=== PATIENT | male | born 1985 | race Hispanic/Latino ===

== ENCOUNTER 2016-12-23 10:07 | Observation (INO) | payer MEDICARE, MEDICAID ==
[2016-12-23 10:07] VITALS: BMI 32.1
[2016-12-23] MEDS ORDERED: Sodium Chloride 0.9% 1,000 ML IV ONE (10:59)
[2016-12-23] MEDS ORDERED: Iohexol 240 (50 ml) PO STA (10:59)
--- NOTE | 2016-12-23 10:59 | C.PDOC ---
History Of Present Illness 31 y/o male presents to ED with complaints of recurrent abdominal wax and wane pain since this morning, mostly to LLQ but generalized. Patient reports prior episodes of similar symptoms and was seen on 05/2016 and 06/2016 for same symptoms. Patient states he followed up with Dr. 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 Patient also complaints of nausea and loose bowel movement but denies fever, chills, vomiting , back pain or any other complaints at this time. No PSHx, NPO since 12/22 RECUR ABD PAIN SINCE THIS MORNING. MOST PAIN LLQ BUT GENERALIZED. WAX WANE. SIM TO PRIOR EPISODES. SEEN 05/2016 AND 06/2016 FOR SAME. PS FU W DR NATHALIE Lopez/P COLONOSCOPY. DX ?GASTRITIS. ON PROTONIX DAILY. +NAUSEA, LOOSE BM. NO FEVER. DENIES PSH EXAM MILD DIST NONTOXIC ABD +LLQ TEND MILD SOFT NO R/G REMAINDER NEG NPO SINCE 12/22 Time Seen by Provider: 12/23/16 10:50 Chief Complaint (Nursing): Abdominal Pain History Per: Patient History/Exam Limitations: no limitations Onset/Duration Of Symptoms: Days Current Symptoms Are (Timing): Still Present Location Of Pain/Discomfort: LLQ Quality Of Discomfort: "Pain" Associated Symptoms: Nausea Past Medical History Reviewed: Historical Data, Nursing Documentation, Vital Signs Vital Signs: Last Vital Signs Temp 97.5 F L 12/23/16 13:32 Pulse 58 L 12/23/16 13:32 Resp 18 12/23/16 13:32 BP 100/64 12/23/16 13:32 Pulse Ox 99 12/23/16 13:32 - Medical History PMH: Anxiety, Bipolar Disorder, Depression, Diverticulitis (+DIVERTICULOSIS) Family History: States: No Known Family Hx - Social History Hx Tobacco Use: No Hx Alcohol Use: Yes Hx Substance Use: No - Immunization History Hx Tetanus Toxoid Vaccination: Yes Hx Influenza Vaccination: No Hx Pneumococcal Vaccination: No Review Of Systems Except As Marked, All Systems Reviewed And Found Negative. Constitutional: Negative for: Fever, Chills Gastrointestinal: Positive for: Nausea, Abdominal Pain. Negative for: Vomiting , Diarrhea Musculoskeletal: Negative for: Back Pain Skin: Negative for: Rash Physical Exam - Physical Exam Appears: Non-toxic, Other (Mild distress) Skin: Normal Color, Warm, No Rash Head: Atraumatic, Normacephalic Eye(s): bilateral: Normal Inspection Neck: Normal ROM, Supple Chest: Symmetrical Cardiovascular: Rhythm Regular, No Murmur Respiratory: Normal Breath Sounds, No Accessory Muscle Use, No Rales, No Rhonchi , No Wheezing Gastrointestinal/Abdominal: Soft, Tenderness (Mild LLQ ), No Guarding, No Rebound Extremity: Normal ROM, Capillary Refill (<2 seconds) ED Course And Treatment - Laboratory Results Result Diagrams: 12/23/16 11:31 12/23/16 11:31 ECG: Interpreted By Me, Viewed By Me ECG Rhythm: Sinus Bradycardia Rate From EC (bpm) O2 Sat by Pulse Oximetry: 98 (RA) Pulse Ox Interpretation: Normal Progress - Data Reviewed Data Reviewed: Lab, Diagnostic imaging, EKG, Old records ED OBSERVATION Discharge: Yes Date of observation admission: 12/23/16 Time of observation admission: 10:30 - Observation admission statement Patient is being placed in observation because:: AB DPAIN - Goals of Observation Goals of observation are:: SX IMPROVE, NEG ACUTE ABD - Progress Note Progress Note: 12/23/16 12:44 RN STATES PT W SINUS LELA ON MONITOR. PT FEELS BETTER, DENIES DIZZY. BP NO SIG CHANGE PRIOR. PENDING CT. 12/23/16 14:09 FEELS BETTER. ADVISED FU GI. LIGHT DIET. Disposition Counseled Patient/Family Regarding: Studies Performed, Diagnosis, Need For Followup, Rx Given - Disposition Disposition: HOME/ ROUTINE Disposition Time: 14:18 Condition: IMPROVED - Clinical Impression Clinical Impression: Abdominal colic - PA / CUSTOMER COMPLAINT SERVICE SUPERVISOR / Resident Statement MD/DO has examined the patient and agrees with the treatment plan. - Scribe Statement The provider has reviewed the documentation as recorded by the Sohan Snow All medical record entries made by the Sohan were at my direction and personally dictated by me. I have reviewed the chart and agree that the record accurately reflects my personal performance of the history, physical exam, medical decision making, and the department course for this patient. I have also personally directed, reviewed, and agree with the discharge instructions and disposition.
[2016-12-23] MEDS ORDERED: Iohexol 240 (50 ml) ONE (11:05)
[2016-12-23] MEDS ORDERED: Sodium Chloride 0.9% 1,000 ML ONE (11:05)
[2016-12-23 11:36] LABS: BASO % 0.3 % (0.0-2.0); EOS # 0.2 K/uL (0.0-0.7); EOS % 2.8 % (0.0-4.0); LYMPH # 1.3 K/uL (1.0-4.3); LYMPH % 21.4 % (20.0-40.0); MEAN CORPUSCULAR HEMOGLOBIN 29.5 pg (27.0-31.0); MEAN CORPUSCULAR HGB CONC 33.3 g/dL (33.0-37.0); MEAN PLATELET VOLUME 9.4 fL (7.2-11.7); MONO # 0.5 K/uL (0.0-0.8); MONO % 7.8 % (0.0-10.0); RED CELL DISTRIBUTION WIDTH 13.2 % (11.5-14.5); WHITE BLOOD COUNT 5.8 K/uL (4.8-10.8)
[2016-12-23 11:39] LABS: MEAN CELL VOLUME 88.7 fL (80.0-94.0)
[2016-12-23 11:41] LABS: RBC URINE < 1 /hpf (0-3); URINE BILIRUBIN NEGATIVE (NEGATIVE); URINE BLOOD NEGATIVE (NEGATIVE); URINE COLOR Yellow (YELLOW); URINE GLUCOSE (UA) NORMAL (Normal); URINE KETONE NEGATIVE (NEGATIVE); URINE LEUKOCYTE ESTERASE NEG Leu/uL (Negative); URINE PROTEIN NEGATIVE (NEGATIVE); URINE UROBILINOGEN NORMAL mg/dL (0.2-1.0); WBC URINE 1 /hpf (0-5)
[2016-12-23 11:44] LABS: CHLORIDE 104 mmol/L (98-107); POTASSIUM 4.1 mmol/L (3.6-5.2); SODIUM 140 mmol/L (132-148)
[2016-12-23 11:46] LABS: GFR AFRICAN-AMERICAN > 60
[2016-12-23 11:47] LABS: ALB/GLOB RATIO 1.3 (1.0-2.1); ALKALINE PHOSPHATASE 63 U/L (38-126); ALT/SGPT 29 U/L (21-72); AST/SGOT 15 U/L (17-59); BILIRUBIN,TOTAL 0.7 mg/dL (0.2-1.3); BLOOD UREA NITROGEN 15 mg/dL (9-20); CARBON DIOXIDE 24 mmol/L (22-30); GLUCOSE,RANDOM 91 mg/dL (75-110); TOTAL PROTEIN 6.8 g/dL (6.3-8.3)
[2016-12-23] MEDS ORDERED: Iodixanol 320 MG/ML 100 ML BOTTLE IV ONE (12:36)
[2016-12-23 13:33] VITALS: PULSE 58; RESP 18
--- NOTE | 2016-12-23 14:11 | CT ---
PROCEDURE: CT abdomen and pelvis dated 12/23/2016 HISTORY: LLQ abd pain COMPARISON: None. TECHNIQUE: Contiguous axial images of the abdomen and pelvis performed following oral and intravenous injection of approximately 100 cc Visipaque 320 contrast material. Comparison made with prior CT scan abdomen pelvis dated 06/07/2016. . . Coronal and Sagittal reformats generated. Radiation dose: Total exam DLP = 1201.13 mGy-cm. This CT exam was performed using one or more of the following dose reduction techniques: Automated exposure control, adjustment of the mA and/or kV according to patient size, and/or use of iterative reconstruction technique. FINDINGS: LOWER THORAX: Lung bases clear. No infiltrate effusion or basilar pneumothorax. Small hiatal hernia. Minimal wall thickening of the distal esophagus likely due to protrusion of gastric mucosa. Esophagitis not excluded. Heart size normal. LIVER: Liver is mildly enlarged measuring approximately nearly 19 cm in CC dimension. Mild diffuse fatty hepatic infiltration. Re- demonstrated are several tiny low-attenuation foci scattered about the right and left lobes of the liver too small to characterize though could represent small hepatic cysts. GALLBLADDER AND BILE DUCTS: Gallbladder is physiologically distended. No evidence of intraluminal gallbladder calculi. PANCREAS: Unremarkable. No mass. No ductal dilatation. SPLEEN: Spleen is mildly enlarged measuring nearly 14 cm in AP dimension. ADRENALS: No adrenal lesions. KIDNEYS AND URETERS: Kidneys demonstrate symmetric nephrograms. No evidence of nephrolithiasis or hydronephrosis. BLADDER: Urinary bladder is incompletely distended which may account for slight thick-walled appearance. Muscular hypertrophy may contribute. Possibility of cystitis not excluded. No definitive evidence of intraluminal urinary bladder calculi. REPRODUCTIVE: Prostate gland measures approximately 3.3 cm in transverse dimension. APPENDIX: Appendix is not seen with certainty on this study. No inflammatory changes identified right lower quadrant of the abdomen. BOWEL: Evaluation of the bowel is slightly limited due to incomplete opacification. The stomach is distended with oral contrast material and air. Visualized loops of small bowel exhibit normal contour and caliber. No evidence of acute mechanical small bowel obstruction. There does appear to be mild diffuse submucosal fat deposition throughout most of the descending colon possibly due to chronic inflammation. There is also mild wall thickening of sigmoid colon that could represent some combination of incomplete distention, peristalsis, unopacified stool and muscular hypertrophy. While there are no obvious inflammatory changes in the adjacent mesenteric, the possibility of mild localized inflammatory process of the wall of the sigmoid colon cannot be excluded. Clinical correlation with physical exam and laboratory values. Scattered colonic diverticula are less well seen on this exam as compared to prior study. PERITONEUM: Unremarkable. No fluid collection. No free air.Small fat containing umbilical hernia LYMPH NODES: Unremarkable. No enlarged lymph nodes. VASCULATURE: No evidence of abdominal aortic aneurysm BONES: The osseous structures appear intact without evidence of acute fractures nor destructive changes. OTHER FINDINGS: None. IMPRESSION: Mild hepatomegaly with mild fatty hepatic infiltration. . Re- demonstrated are several tiny low-attenuation foci scattered about the right and left lobes of the liver too small to characterize though could represent small hepatic cysts. Mild splenomegaly. Diffuse colonic diverticulosis predominately involving the transverse and and descending colon. Mild submucosal fat deposition within most of the descending colon possibly due to chronic inflammation. There is also mild wall thickening of the sigmoid colon which could be due in part to incomplete distention, peristalsis, adherent unopacified stool and muscular hypertrophy. . No evidence of inflammatory changes within the adjacent mesentery however possibility of mild inflammatory process of the wall of the sigmoid colon not excluded clinical correlation recommended. Findings discussed with Dr. Morris at the 2:10 p.m. with written down and read back verification
[2016-12-23 14:52] VITALS: BP 108/72; TEMP 97.8; O2SAT 100
--- NOTE | 2016-12-25 11:46 | CARD ---
APPROVED REPORT EKG Measurement Heart [id number] <Conclusion> Marked sinus bradycardia Abnormal ECG
== END 2016-12-23 14:19 | disposition home or self-care (01) ==
LOC: C.ER 10:07 → C.9OBSV 10:30
PROVIDERS: ADMIT Emergency Medicine; ATTEND Emergency Medicine
DX: R10.84 Generalized abdominal pain (principal)
CPT/HCPCS: 74177; 80053; 81001; 83690; 85025; 93005; 96374; 96375; 99285; G0378; J2270; J2405; J7040; Q9966; Q9967

== ENCOUNTER 2017-04-20 02:06 | Emergency (ER) | payer MEDICARE, MEDICAID ==
[2017-04-20 02:21] VITALS: BMI 30.5
[2017-04-20] MEDS ORDERED: Sodium Chloride 0.9% 1,000 ML IV ONE (02:44)
--- NOTE | 2017-04-20 02:55 | C.PDOC ---
History Of Present Illness 32 year old male with PMHx of diverticulitis presents to the ED for evaluation of left sided abdominal pain radiating downward for the past 4 days. Patient reports the pain is associated with nausea as well as 2 episodes of lose stool. Patient denies vomit, fever, GI bleed, dysuria, hematuria, recent travel. Time Seen by Provider: 04/20/17 02:13 Chief Complaint (Nursing): Abdominal Pain History Per: Patient History/Exam Limitations: no limitations Onset/Duration Of Symptoms: Days Location Of Pain/Discomfort: LUQ, LLQ Radiation Of Pain To:: None Quality Of Discomfort: "Pain" Associated Symptoms: Diarrhea Exacerbating Factors: None Alleviating Factors: None Recent travel outside of the [place]: No Additional History Per: Patient Past Medical History Reviewed: Historical Data, Nursing Documentation, Vital Signs Vital Signs: Last Vital Signs Temp 97.7 F 04/20/17 04:35 Pulse 63 04/20/17 04:35 Resp 18 04/20/17 04:35 BP 114/64 04/20/17 04:35 Pulse Ox 95 04/20/17 05:23 - Medical History PMH: Anxiety, Bipolar Disorder, Depression, Diverticulitis (+DIVERTICULOSIS) Denies: Chronic Kidney Disease Surgical History: No Surg Hx Family History: States: Unknown Family Hx - Social History Hx Tobacco Use: No Hx Alcohol Use: Yes Hx Substance Use: No - Immunization History Hx Tetanus Toxoid Vaccination: Yes Hx Influenza Vaccination: No Hx Pneumococcal Vaccination: No Review Of Systems Constitutional: Negative for: Fever, Chills Respiratory: Negative for: Cough, Shortness of Breath Gastrointestinal: Positive for: Nausea, Abdominal Pain, Diarrhea Genitourinary: Negative for: Dysuria, Hematuria Musculoskeletal: Negative for: Back Pain Skin: Negative for: Rash Neurological: Negative for: Weakness, Numbness Physical Exam - Physical Exam Appears: Non-toxic, No Acute Distress Skin: Normal Color, Warm, Dry Head: Atraumatic, Normacephalic Nose: No Discharge Oral Mucosa: Moist Neck: Normal ROM, Supple Chest: Symmetrical Cardiovascular: Rhythm Regular, No Murmur Respiratory: Normal Breath Sounds, No Rales, No Rhonchi, No Wheezing Gastrointestinal/Abdominal: Soft, Tenderness (Mild LLQ), No Distention, No Guarding, No Rebound Extremity: Normal ROM, No Pedal Edema, No Calf Tenderness, No Deformity, No Swelling Neurological/Psych: Oriented x3, Normal Speech, Normal Cognition Gait: Steady ED Course And Treatment - Laboratory Results Result Diagrams: 04/20/17 03:01 04/20/17 03:01 O2 Sat by Pulse Oximetry: 95 (On RA) Pulse Ox Interpretation: Normal - CT Scan/US CT abd/pelvis Other Rad Studies (CT/US): Read By Radiologist, Radiology Report Reviewed CT/US Interpretation: EXAM: CT Abdomen and Pelvis With Intravenous Contrast. CLINICAL HISTORY: 32 years old, male; Pain; Abdominal pain; Epigastric; Additional info: Abd pain. TECHNIQUE: Axial computed tomography images of the abdomen and pelvis with intravenous contrast. All CT. scans at this facility use one or more dose reduction techniques, viz.: automated exposure control;. ma/kV adjustment per patient size (including targeted exams where dose is matched to indication; i.e. head); or iterative reconstruction technique. 679 images are submitted. Coronal and sagittal reformatted images were created and reviewed. CONTRAST: 100 mL of [id number] administered intravenously. COMPARISON : No relevant prior studies available. FINDINGS: Lower thorax: There is bibasilar atelectasis. ABDOMEN: Liver: There are multiple liver hypodensities that are not characterized on this examination. Enlarged Fatty liver. Gallbladder and bile ducts: Unremarkable. No ductal dilation. Pancreas: Unremarkable. No mass. No ductal dilation. Spleen: Splenomegaly measuring 14 cm. Adrenals: Unremarkable. No mass. Kidneys and ureters: Unremarkable. No solid mass. No hydronephrosis. Stomach and bowel: There are radiopaque densities within the cecum likely representing ingested. material. Diverticulosis. No obstruction. No mucosal thickening.There are nonspecific fluid filled. small bowel loops. These findings can represent ileus versus enteritis versus slow transit versus. peristalsis. Appendix: Possible normal appendix seen. PELVIS: Bladder: Partially distended bladder. Reproductive: There is small fat and calcium containing mass in the medial thigh muscle seen on. image 117 series 2 representing a small lipoma/dermoid. ABDOMEN and PELVIS : Intraperitoneal space: Unremarkable. No free air. No significant fluid collection. Bones/joints: Minimal degenerative changes. No acute fracture. No dislocation. Soft tissues: There is a fat-containing umbilical hernia. Vasculature: Unremarkable. No abdominal aortic aneurysm. Lymph nodes: Multiple subcentimeter mesenteric and ileocolic lymph nodes. Findings are. nonspecific but may represent mesenteric adenitis. Subcentimeter retroperitoneal and para- aortic. lymph nodes. Bilateral groin lymph nodes. IMPRESSION: No acute findings. Medical Decision Making Medical Decision Making: Plan: * CT abd/pelvis * Blood work * IV fluids * Pepcid 20 mg IVP * Toradol 30 mg IVP * Zofran 4 mg IVP On re-exam, the patient reports improvement of symptoms. Lungs are CTA, heart is RRR, Abdomen is soft, non-tender, patient is tolerating PO well, and is ambulatory in the ED with steady gait. Follow up with the medical doctor within 1-2 days. Return to the ED as soon as possible if worsened. Disposition Counseled Patient/Family Regarding: Studies Performed, Diagnosis, Need For Followup, Rx Given - Disposition Referrals: [facility] [Outside] Disposition: HOME/ ROUTINE Disposition Time: 05:34 Condition: GOOD Additional Instructions: Follow up with the medical doctor within 1-2 days. Return if worsened. 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 - Scribe Statement The provider has reviewed the documentation as recorded by the Scribe Jasiel Flores All medical record entries made by the Danielibelyssa were at my direction and personally dictated by me. I have reviewed the chart and agree that the record accurately reflects my personal performance of the history, physical exam, medical decision making, and the department course for this patient. I have also personally directed, reviewed, and agree with the discharge instructions and disposition.
[2017-04-20] MEDS ORDERED: Sodium Chloride 0.9% 1,000 ML ONE (02:57)
[2017-04-20 03:03] LABS: BASO % 0.4 % (0.0-2.0); EOS # 0.2 K/uL (0.0-0.7); EOS % 3.1 % (0.0-4.0); HEMATOCRIT 39.9 % (35.0-51.0); LYMPH % 15.4 % (20.0-40.0); MEAN CELL VOLUME 88.7 fL (80.0-94.0); MEAN CORPUSCULAR HEMOGLOBIN 31.2 pg (27.0-31.0); MEAN CORPUSCULAR HGB CONC 35.1 g/dL (33.0-37.0); MONO # 0.6 K/uL (0.0-0.8); MONO % 9.6 % (0.0-10.0); WHITE BLOOD COUNT 6.6 K/uL (4.8-10.8)
[2017-04-20 03:15] LABS: ALB/GLOB RATIO 1.4 (1.0-2.1); ALKALINE PHOSPHATASE 60 U/L (38-126); ALT/SGPT 30 U/L (21-72); AST/SGOT 16 U/L (17-59); BILIRUBIN,TOTAL 0.5 mg/dL (0.2-1.3); BLOOD UREA NITROGEN 18 mg/dL (9-20); CALCIUM 8.6 mg/dl (8.6-10.4); CARBON DIOXIDE 29 mmol/L (22-30); CHLORIDE 99 mmol/L (98-107); GFR AFRICAN-AMERICAN > 60; GLUCOSE,RANDOM 97 mg/dL (75-110); POTASSIUM 3.8 mmol/L (3.6-5.2); SODIUM 135 mmol/L (132-148); TOTAL PROTEIN 6.8 g/dL (6.3-8.3)
[2017-04-20] MEDS ORDERED: Iodixanol 320 MG/ML 100 ML BOTTLE IV ONE (03:50)
[2017-04-20] MEDS ORDERED: Morphine 4 MG/ML VIAL ONE (04:39)
[2017-04-20 04:45] VITALS: RESP 18; TEMP 97.7
--- NOTE | 2017-04-20 05:17 | CT ---
EXAM: CT Abdomen and Pelvis With Intravenous Contrast CLINICAL HISTORY: 32 years old, male; Pain; Abdominal pain; Epigastric; Additional info: Abd pain TECHNIQUE: Axial computed tomography images of the abdomen and pelvis with intravenous contrast. All CT scans at this facility use one or more dose reduction techniques, viz.: automated exposure control; ma/kV adjustment per patient size (including targeted exams where dose is matched to indication; i.e. head); or iterative reconstruction technique. 679 images are submitted. Coronal and sagittal reformatted images were created and reviewed. CONTRAST: 100 mL of [id number] administered intravenously. COMPARISON: No relevant prior studies available. FINDINGS: Lower thorax: There is bibasilar atelectasis. ABDOMEN: Liver: There are multiple liver hypodensities that are not characterized on this examination. Enlarged Fatty liver. Gallbladder and bile ducts: Unremarkable. No ductal dilation. Pancreas: Unremarkable. No mass. No ductal dilation. Spleen: Splenomegaly measuring 14 cm. Adrenals: Unremarkable. No mass. Kidneys and ureters: Unremarkable. No solid mass. No hydronephrosis. Stomach and bowel: There are radiopaque densities within the cecum likely representing ingested material. Diverticulosis. No obstruction. No mucosal thickening.There are nonspecific fluid filled small bowel loops. These findings can represent ileus versus enteritis versus slow transit versus peristalsis. Appendix: Possible normal appendix seen. PELVIS: Bladder: Partially distended bladder. Reproductive: There is small fat and calcium containing mass in the medial thigh muscle seen on image 117 series 2 representing a small lipoma/dermoid. ABDOMEN and PELVIS: Intraperitoneal space: Unremarkable. No free air. No significant fluid collection. Bones/joints: Minimal degenerative changes. No acute fracture. No dislocation. Soft tissues: There is a fat-containing umbilical hernia. Vasculature: Unremarkable. No abdominal aortic aneurysm. Lymph nodes: Multiple subcentimeter mesenteric and ileocolic lymph nodes. Findings are nonspecific but may represent mesenteric adenitis. Subcentimeter retroperitoneal and para-aortic lymph nodes. Bilateral groin lymph nodes. IMPRESSION: No acute findings.
[2017-04-20 05:36] VITALS: BP 115/70; PULSE 61
[2017-04-20 05:37] VITALS: O2SAT 95
== END 2017-04-20 05:44 | disposition home or self-care (01) ==
LOC: C.ER 02:06
DX: I88.9 Nonspecific lymphadenitis, unspecified (principal)
CPT/HCPCS: 74177; 80053; 83690; 85025; 96374; 96375; 99285; J1885; J2270; J2405; J7040; Q9967

== ENCOUNTER 2017-11-01 01:19 | Emergency (ER) | payer MEDICARE, MEDICAID ==
[2017-11-01 01:20] VITALS: BMI 31.8
[2017-11-01] MEDS ORDERED: Sodium Chloride 0.9% 1,000 ML IV ONE (02:10)
[2017-11-01] MEDS ORDERED: DiphenhydrAMINE 50 mg/ml Inj IVP STA (02:12)
--- NOTE | 2017-11-01 02:20 | C.PDOC ---
History Of Present Illness 32 year old male with no significant PMHx presents to the ED for evaluation of vomiting. Patient reports that at 15:00 today he ate some raw oysters and beer, at 18:00 patient tried to have dinner and threw up all he ate. Patient was accompanied by his who has similar symptoms also after eating raw oysters. Patient denies fever, chills, diarrhea, rash, hematemesis. Chief Complaint (Nursing): GI Problem History Per: Patient History/Exam Limitations: no limitations Onset/Duration Of Symptoms: Hrs Current Symptoms Are (Timing): Still Present Context: Food Location Of Pain/Discomfort: Diffuse Radiation Of Pain To:: None Quality Of Discomfort: "Pain" Associated Symptoms: Vomiting Exacerbating Factors: None Alleviating Factors: None Recent travel outside of the [place]: No Additional History Per: Patient Past Medical History Reviewed: Historical Data, Nursing Documentation, Vital Signs Vital Signs: Last Vital Signs Temp 97.6 F 11/01/17 04:02 Pulse 71 11/01/17 04:02 Resp 18 11/01/17 04:02 BP 108/65 11/01/17 04:02 Pulse Ox 97 11/01/17 04:02 - Medical History PMH: Anxiety, Bipolar Disorder, Depression, Diverticulitis (+DIVERTICULOSIS) Denies: Chronic Kidney Disease Surgical History: No Surg Hx Family History: States: Unknown Family Hx - Social History Hx Tobacco Use: No Hx Alcohol Use: Yes Hx Substance Use: No - Immunization History Hx Tetanus Toxoid Vaccination: Yes Hx Influenza Vaccination: No Hx Pneumococcal Vaccination: No Review Of Systems Constitutional: Negative for: Fever, Chills Cardiovascular: Negative for: Chest Pain Respiratory: Negative for: Shortness of Breath Gastrointestinal: Positive for: Vomiting, Abdominal Pain. Negative for: Nausea , Diarrhea Skin: Negative for: Rash Neurological: Negative for: Weakness Physical Exam - Physical Exam Appears: Non-toxic, Other (maggie heaving during examination) Skin: Normal Color, Warm, Dry, Diaphoretic Head: Atraumatic, Normacephalic Eye(s): bilateral: Normal Inspection Oral Mucosa: Moist Neck: Normal ROM, Supple Chest: Symmetrical Cardiovascular: Rhythm Regular Respiratory: Normal Breath Sounds, No Rales, No Rhonchi, No Wheezing Gastrointestinal/Abdominal: Soft, Tenderness (epigastric), No Guarding, No Rebound Back: No CVA Tenderness Extremity: Normal ROM, No Tenderness, No Swelling Neurological/Psych: Oriented x3, Normal Speech Gait: Steady ED Course And Treatment - Laboratory Results Result Diagrams: 11/01/17 02:41 11/01/17 02:41 O2 Sat by Pulse Oximetry: 96 (ON RA) Pulse Ox Interpretation: Normal Medical Decision Making Medical Decision Making: Impression: Food poisoning Plan: * Benadryl 25 mg IVP * Compazine 10 mg IVP * Protonix 40 mg IVP * IV fluids Disposition - Disposition Referrals: [facility] at [facility] [Outside] Disposition: HOME/ ROUTINE Disposition Time: 04:43 Condition: GOOD Prescriptions: Ondansetron ODT [Zofran ODT] 4 mg PO TID PRN #6 odt PRN Reason: Nausea/Vomiting Instructions: Food Poisoning Forms: [employer] (Costa Rican) Print Language: UGANDAN - Clinical Impression Clinical Impression: Food poisoning - Scribe Statement The provider has reviewed the documentation as recorded by the Scribe Jasiel Flores All medical record entries made by the Scribe were at my direction and personally dictated by me. I have reviewed the chart and agree that the record accurately reflects my personal performance of the history, physical exam, medical decision making, and the department course for this patient. I have also personally directed, reviewed, and agree with the discharge instructions and disposition.
[2017-11-01 02:44] LABS: BASO # 0.1 K/uL (0.0-0.2); BASO % 0.6 % (0.0-2.0); EOS # 0.2 K/uL (0.0-0.7); HEMOGLOBIN 13.9 g/dL (12.0-18.0); LYMPH # 1.3 K/uL (1.0-4.3); LYMPH % 14.1 % (20.0-40.0); MEAN CELL VOLUME 88.5 fL (80.0-94.0); MEAN CORPUSCULAR HEMOGLOBIN 30.1 pg (27.0-31.0); MEAN CORPUSCULAR HGB CONC 34.1 g/dL (33.0-37.0); MEAN PLATELET VOLUME 8.6 fL (7.2-11.7); MONO # 0.6 K/uL (0.0-0.8); MONO % 6.7 % (0.0-10.0); NEUT # 7.1 K/uL (1.8-7.0); NEUT % 76.6 % (50.0-75.0); RBC 4.6 Mil/uL (4.40-5.90); WHITE BLOOD COUNT 9.3 K/uL (4.8-10.8)
[2017-11-01] MEDS ORDERED: DiphenhydrAMINE 50 mg/ml Inj ONE (02:45)
[2017-11-01] MEDS ORDERED: Sodium Chloride 0.9% 1,000 ML ONE (02:46)
[2017-11-01 02:56] LABS: ALB/GLOB RATIO 1.6 (1.0-2.1); ALBUMIN 4.3 g/dL (3.5-5.0); ALT/SGPT 60 U/L (21-72); AST/SGOT 48 U/L (17-59); BLOOD UREA NITROGEN 15 mg/dL (9-20); CALCIUM 9.2 mg/dl (8.6-10.4); GFR AFRICAN-AMERICAN > 60; GFR NON-AFRICAN AMERICAN > 60; LIPASE 76 U/L (23-300)
[2017-11-01 04:03] VITALS: BP 108/65; PULSE 71; RESP 18; TEMP 97.6
[2017-11-01 04:44] VITALS: O2SAT 96
== END 2017-11-01 04:03 | disposition home or self-care (01) ==
LOC: C.ER 01:19
DX: T62.8X1A Toxic effect of other specified noxious substances eaten as food, accidental (unintentional), initial encounter (principal); Y92.89 Other specified places as the place of occurrence of the external cause
CPT/HCPCS: 80053; 83690; 85025; 96361; 96374; 96375; 99284; C9113; G0480; J0780; J1200; J7030

== ENCOUNTER 2018-03-22 16:53 | Emergency (ER) | payer MEDICARE, MEDICAID ==
[2018-03-22 16:53] VITALS: BMI 31.8
[2018-03-22] MEDS ORDERED: Sodium Chloride 0.9% 1,000 ML IV STA (17:46)
[2018-03-22] MEDS ORDERED: Sodium Chloride 0.9% 1,000 ML ONE (17:55)
[2018-03-22 18:21] LABS: BASO % 0.5 % (0.0-2.0); EOS # 0.2 K/uL (0.0-0.7); EOS % 2.4 % (0.0-4.0); HEMOGLOBIN 15.4 g/dL (12.0-18.0); LYMPH # 1.4 K/uL (1.0-4.3); LYMPH % 20.1 % (20.0-40.0); MEAN CELL VOLUME 87.6 fL (80.0-94.0); MEAN CORPUSCULAR HEMOGLOBIN 29.7 pg (27.0-31.0); MEAN CORPUSCULAR HGB CONC 33.9 g/dL (33.0-37.0); MEAN PLATELET VOLUME 8.4 fL (7.2-11.7); MONO # 0.7 K/uL (0.0-0.8); MONO % 9.8 % (0.0-10.0); NEUT # 4.7 K/uL (1.8-7.0); NEUT % 67.2 % (50.0-75.0); RBC 5.19 Mil/uL (4.40-5.90); RED CELL DISTRIBUTION WIDTH 13.6 % (11.5-14.5); WHITE BLOOD COUNT 6.9 K/uL (4.8-10.8)
[2018-03-22 18:24] LABS: URINE BILIRUBIN NEGATIVE (NEGATIVE); URINE BLOOD NEGATIVE (NEGATIVE); URINE CLARITY Clear (Clear); URINE COLOR Yellow (YELLOW); URINE GLUCOSE (UA) NORMAL (Normal); URINE LEUKOCYTE ESTERASE NEG Leu/uL (Negative); URINE PROTEIN NEGATIVE (NEGATIVE); URINE UROBILINOGEN NORMAL mg/dL (0.2-1.0)
[2018-03-22 18:33] LABS: ALB/GLOB RATIO 1.4 (1.0-2.1); ALBUMIN 4.5 g/dL (3.5-5.0); ALT/SGPT 29 U/L (21-72); AMYLASE 83 U/L (30-110); AST/SGOT 17 U/L (17-59); BLOOD UREA NITROGEN 15 mg/dL (9-20); CALCIUM 9.5 mg/dl (8.6-10.4); GFR NON-AFRICAN AMERICAN 59; LIPASE 120 U/L (23-300)
[2018-03-22] MEDS ORDERED: Dextrose 5%/0.9% NS 1,000 ML IV STA (18:41)
[2018-03-22 18:47] LABS: BENZODIAZEPINES, UR NEGATIVE (NEGATIVE); OPIATES, UR NEGATIVE (NEGATIVE); PHENCYCLIDINE, UR NEGATIVE (NEGATIVE)
[2018-03-22] MEDS ORDERED: Dextrose 5%/0.9% NS 1,000 ML IV ONE (18:51)
[2018-03-22 19:06] LABS: BARBITURATES, UR NEGATIVE (NEGATIVE)
--- NOTE | 2018-03-22 19:57 | C.PDOC ---
History Of Present Illness 33 y/o male, with history of bronchitis, presents to ED complaining of low back pain, 1 day of diarrhea, nausea, and lightheadedness. Patient states that he finished his antibiotics zithromax and prednisone, and currently does not feel well. Otherwise he denies any vomiting, abdominal pain, fever, chills, weakness, or numbness. Chief Complaint (Nursing): Flu-like Symptoms History Per: Patient History/Exam Limitations: no limitations Onset/Duration Of Symptoms: Days Current Symptoms Are (Timing): Still Present Past Medical History Reviewed: Historical Data, Nursing Documentation, Vital Signs Vital Signs: Last Vital Signs Temp 98.2 F 03/22/18 17:15 Pulse 115 H 03/22/18 17:15 Resp 20 03/22/18 17:15 BP 108/74 03/22/18 17:15 Pulse Ox 95 03/22/18 17:15 - Medical History PMH: Anxiety, Bipolar Disorder, Depression, Diverticulitis (+DIVERTICULOSIS), Personality Disorder Denies: Chronic Kidney Disease Family History: States: No Known Family Hx - Social History Hx Tobacco Use: No Hx Alcohol Use: Yes Hx Substance Use: No - Immunization History Hx Tetanus Toxoid Vaccination: Yes Hx Influenza Vaccination: No Hx Pneumococcal Vaccination: No Review Of Systems Except As Marked, All Systems Reviewed And Found Negative. Constitutional: Negative for: Fever, Chills Cardiovascular: Positive for: Light Headedness Gastrointestinal: Positive for: Nausea, Diarrhea. Negative for: Vomiting Musculoskeletal: Positive for: Back Pain (lower) Physical Exam - Physical Exam Appears: Non-toxic, No Acute Distress Skin: Warm, Dry Head: Atraumatic, Normacephalic Eye(s): bilateral: Normal Inspection Oral Mucosa: Moist Neck: Supple Cardiovascular: Rhythm Regular, No Murmur Respiratory: Normal Breath Sounds, No Rales, No Rhonchi, No Wheezing Gastrointestinal/Abdominal: Soft, No Tenderness Back: No CVA Tenderness, Other (Mild tenderness in lower back) Extremity: No Pedal Edema, No Deformity Extremity: Bilateral: Atraumatic, Normal Color And Temperature, Normal ROM Neurological/Psych: Oriented x3, Normal Speech, Normal Motor, Normal Sensation ED Course And Treatment - Laboratory Results Result Diagrams: 03/22/18 18:15 03/22/18 18:15 O2 Sat by Pulse Oximetry: 95 (RA) Pulse Ox Interpretation: Normal Progress Note: Bloodwork and urinalysis ordered. Patient is positive for cocaine use. Gave patient IV fluids, zofran, protonix, and toradol. On re-evaluation, patient is resting comfortably, tolerating PO, and is feeling better. Patient will be discharged home and was instructed to follow up with PMD in 1-2 days for further evaluation. Disposition - Disposition Referrals: Topher Nelson MD [Staff Provider] - Disposition: HOME/ ROUTINE Disposition Time: 19:54 Condition: STABLE Additional Instructions: Follow up with your PMD within 1-2 days. Return to ED if feel worse. Prescriptions: Lidocaine 5% [Lidoderm] 1 patch TP DAILY #30 patch Methocarbamol [Robaxin-750] 750 mg PO TID #30 tab Instructions: Low Back Pain (DC), Viral Syndrome (DC) Forms: [employer] (Thai) - Clinical Impression Clinical Impression: Viral syndrome, Back pain - PA / CLOD PULLER / Resident Statement MD/DO has reviewed & agrees with the documentation as recorded. - Scribe Statement The provider has reviewed the documentation as recorded by the Scribelyssa Harris All medical record entries made by the Scribelyssa were at my direction and personally dictated by me. I have reviewed the chart and agree that the record accurately reflects my personal performance of the history, physical exam, medical decision making, and the department course for this patient. I have also personally directed, reviewed, and agree with the discharge instructions and disposition.
[2018-03-22 20:12] VITALS: BP 110/70; PULSE 100; RESP 18; TEMP 98
[2018-03-22 20:40] VITALS: O2SAT 95
== END 2018-03-22 20:13 | disposition home or self-care (01) ==
LOC: C.ER 16:53
DX: B34.9 Viral infection, unspecified (principal); M54.5 Low back pain
CPT/HCPCS: 80053; 81001; 82150; 83690; 83735; 85025; 87804; 96361; 96374; 96375; 96376; 99284; C9113; G0480; J1885; J2405; J7030; J7042